=== PATIENT | male | born 1935 | race Caucasian/White ===

== ENCOUNTER 2019-11-23 08:47 | Outpatient (CLI) | payer OTHER, SELFPAY ==
[2019-11-23 09:14] LABS: Alanine Aminotransferase 24 U/L (4-50); Albumin Level 4.4 g/dL (3.5-5.1); Alkaline Phosphatase 94 U/L (38-126); Aspartate Amino Transferase 52 U/L (17-59); Bilirubin,Total 0.6 mg/dL (0.2-1.3); Blood Urea Nitrogen 16 mg/dL (9-20); Calcium 9.4 mg/dL (8.4-10.2); Carbon Dioxide 30 mmol/L (22-30); Chloride 105 mmol/L (98-107); Cholesterol 172 mg/dL (0-200); Estimated Glomerular Filt Rate > 60; Glucose 99 mg/dL (75-110); HDL Direct 74 mg/dL; Potassium 4.6 mmol/L (3.4-5.0); Sodium 138 mmol/L (137-145); Triglycerides 60 mg/dL (<150)
[2019-11-23 09:25] LABS: LDL Cholesterol Direct 75 mg/dL
== END 2019-11-23 08:48 | disposition home or self-care (01) ==
PROVIDERS: PCP Internal Medicine; Visit Provider Nurse Practitioner
DX: E78.5 Hyperlipidemia, unspecified (principal)
CPT/HCPCS: 36415; 80053; 80061

== ENCOUNTER 2020-08-07 11:23 | Outpatient (CLI) | payer OTHER, SELFPAY ==
[2020-08-07 12:02] LABS: Alanine Aminotransferase 27 U/L (4-50); Albumin Level 4.2 g/dL (3.5-5.1); Alkaline Phosphatase 85 U/L (38-126); Anion Gap 3 mmol/L (8-16); Aspartate Amino Transferase 51 U/L (17-59); Bilirubin,Total 0.4 mg/dL (0.2-1.3); Blood Urea Nitrogen 19 mg/dL (9-20); Calcium 9.4 mg/dL (8.4-10.2); Carbon Dioxide 31 mmol/L (22-30); Chloride 106 mmol/L (98-107); Cholesterol 176 mg/dL (0-200); Estimated Glomerular Filt Rate > 60; Glucose 94 mg/dL (75-110); HDL Direct 69 mg/dL; Potassium 4.7 mmol/L (3.4-5.0); Sodium 140 mmol/L (137-145); Triglycerides 110 mg/dL (<150)
[2020-08-07 12:12] LABS: LDL Cholesterol Direct 69 mg/dL
== END 2020-08-07 11:24 | disposition home or self-care (01) ==
PROVIDERS: PCP Internal Medicine; Visit Provider Internal Medicine
DX: I10 Essential (primary) hypertension (principal); Z79.899 Other long term (current) drug therapy; E78.5 Hyperlipidemia, unspecified
CPT/HCPCS: 36415; 80053; 80061

== ENCOUNTER 2021-03-11 14:07 | Outpatient (CLI) | payer OTHER, SELFPAY ==
[2021-03-11 15:16] LABS: Alanine Aminotransferase 28 U/L (4-50); Alkaline Phosphatase 109 U/L (38-126); Anion Gap 7 mmol/L (8-16); Aspartate Amino Transferase 60 U/L (17-59); Bilirubin,Total 0.6 mg/dL (0.2-1.3); Blood Urea Nitrogen 17 mg/dL (9-20); Calcium 9.7 mg/dL (8.4-10.2); Carbon Dioxide 28 mmol/L (22-30); Chloride 104 mmol/L (98-107); Cholesterol 234 mg/dL (0-200); Estimated Glomerular Filt Rate > 60; Glucose 96 mg/dL (65-110); HDL Direct 91 mg/dL; Potassium 4.3 mmol/L (3.4-5.0); Sodium 139 mmol/L (137-145); Triglycerides 85 mg/dL (<150)
[2021-03-11 15:26] LABS: LDL Cholesterol Direct 117 mg/dL
== END 2021-03-11 14:08 | disposition home or self-care (01) ==
PROVIDERS: PCP Internal Medicine; Visit Provider Internal Medicine
DX: Z79.899 Other long term (current) drug therapy (principal); I10 Essential (primary) hypertension; E78.5 Hyperlipidemia, unspecified
CPT/HCPCS: 36415; 80053; 80061

== ENCOUNTER 2021-04-03 00:59 | Day surgery (SDC) | payer OTHER, SELFPAY ==
[2021-03-22 13:00] VITALS: BMI 22.1
--- NOTE | 2021-04-02 09:34 | P.PNAN_ITS ---
Anes - Initial Pre Proc Eval Procedure: Operation Date: 04/03/21 11:00 Proposed Procedures p Colonoscopy - Mohsen Barber MD Date/Time: 04/02/21 09:34 Surgeon: Mohsen Barber MD Pre Op Diagnosis: Rectal Bleeding Patient Data Age: 85 Gender: M Height: 1.8 m Weight: 72 kg Allergies Allergy/AdvReac Type Severity Reaction Status Date / Time No Known Allergies Allergy Unknown Verified 04/03/21 10:19 Home Medications Medication Instructions Recorded Confirmed Type aspirin 81 mg tablet,delayed 81 mg PO DAILY 05/24/19 03/22/21 History release losartan 50 mg tablet 50 mg PO DAILY #90 tablet 02/04/21 03/22/21 Rx atorvastatin 10 mg tablet 10 mg PO DAILY #90 tablet 03/13/21 03/22/21 Rx Patient hx anesthesia problems: none Family hx anesthesia problems: none Results Review: All pre-operative results and documents have been reviewed as part of the pre-operative evaluation. [facility] Past Medical History Medical History (Updated 04/02/21 @ 09:35 by James Hudson DO) Bladder infection Elevated blood pressure reading in office without diagnosis of hypertension Essential hypertension Essential tremor Hyperlipidemia Mild cognitive impairment Rotator cuff tear Surgical History Surgical History S/P rotator cuff repair Family History Family History Father Cerebrovascular accident Patient's father is Sibling Cerebrovascular accident Family history of Parkinson's disease Patient's sister is Patient's brother is Mother Patient's mother is Social History Social History Smoking status: Never smoker Second hand tobacco smoke exposure: No Alcohol intake: current Drinks per week: 2 Substance use: never Substance use type: does not use Living arrangements: with family Spiritual care concerns: No Anes - Eval Final PreProcedure Day of Procedure 04/02/21 09:34 Patient weight: normal Heart: regular rate and rhythm Lungs: clear to auscultation and normal air movement Airway: Mallampati scale class II Neurological: alert and oriented Last oral intake: >/= 8 hours ASA classification: III Emergent: no Anesthetic plan: proceed Anesthesia type and monitoring: general GIVS and standard monitoring Results Review: All pre-operative results and documents have been reviewed as part of the pre-operative evaluation. Informed Consent: The patient's anesthetic plan and its attendant risks and benefits were discussed with the patient/family/POA. Questions were solicited and answers provided to the satisfaction of the patient/family/POA.
--- NOTE | 2021-04-02 13:37 | PM.HPGS ---
History of Present Illness History of Present Illness Consent: Risks, benefits, and alternatives have been discussed and questions answered. Patient agrees to proceed with procedure. Chief complaint: Rectal Bleeding Narrative: Sumit Lane is a 85 year old male who has been seeing blood in his stools for the past few months. His last colonoscopy was 7 years ago Review of Systems Review of Systems: All systems reviewed & are unremarkable except as noted in HPI and below PMFSH Past Medical History Medical History (Updated 04/02/21 @ 09:35 by James Hudson DO) Bladder infection Elevated blood pressure reading in office without diagnosis of hypertension Essential hypertension Essential tremor Hyperlipidemia Mild cognitive impairment Rotator cuff tear Surgical History Surgical History S/P rotator cuff repair Family History Family History Father Cerebrovascular accident Patient's father is Sibling Cerebrovascular accident Family history of Parkinson's disease Patient's sister is Patient's brother is Mother Patient's mother is Social History Social History Smoking status: Never smoker Second hand tobacco smoke exposure: No Alcohol intake: current Drinks per week: 2 Substance use: never Substance use type: does not use Living arrangements: with family Spiritual care concerns: No Meds Home Medications and Allergies Home Medications Medication Instructions Recorded Confirmed Type aspirin 81 mg tablet,delayed 81 mg PO DAILY 05/24/19 03/22/21 History release losartan 50 mg tablet 50 mg PO DAILY #90 tablet 02/04/21 03/22/21 Rx atorvastatin 10 mg tablet 10 mg PO DAILY #90 tablet 03/13/21 03/22/21 Rx Allergies Allergy/AdvReac Type Severity Reaction Status Date / Time No Known Allergies Allergy Unknown Verified 03/13/21 10:07 Exam Const: General: alert Orientation/consciousness: patient oriented x3 Resp: Auscultation: clear to auscultation bilaterally Cardio: Rhythm: regular rhythm GI: GI Palp: Yes Soft to palpation and No Tenderness to palpation present (GI) Neuro: General: patient oriented x3 Assessment and Plan Assessment and plan (1) Rectal bleeding: Code(s): K62.5 - Hemorrhage of anus and rectum Status: Acute Assessment and Plan: Colonoscopy with possible biopsy or polypectomy or cautery or injection of substances.
[2021-04-03 10:21] VITALS: BP 125/76; PULSE 69; RESP 20; TEMP 36.3; O2SAT 100; BMI 21.2
[2021-04-03] MEDS: LACTATED RINGERS 1,000 ML 150 ML IV CONT (10:25)
[2021-04-03 11:13] VITALS: BP 96/56; PULSE 52; RESP 12; O2SAT 99
[2021-04-03 11:23] VITALS: BP 111/58; PULSE 59; RESP 20; O2SAT 99
[2021-04-03 11:33] VITALS: BP 131/67; PULSE 50; RESP 15; O2SAT 100
== END 2021-04-03 11:53 | disposition home or self-care (01) ==
PROVIDERS: PCP Internal Medicine; Visit Provider Internal Medicine Gastroenterology
PROC: 0DJD8ZZ Inspection of Lower Intestinal Tract, Via Natural or Artificial Opening Endoscopic (ICD-10-PCS; CPT 45378; principal; 2021-04-03 11:00)
DX: Z12.11 Encounter for screening for malignant neoplasm of colon (principal); C20 Malignant neoplasm of rectum; K57.30 Diverticulosis of large intestine without perforation or abscess without bleeding; I10 Essential (primary) hypertension; R25.1 Tremor, unspecified; G31.84 Mild cognitive impairment of uncertain or unknown etiology; E78.5 Hyperlipidemia, unspecified; R03.0 Elevated blood-pressure reading, without diagnosis of hypertension; Z79.82 Long term (current) use of aspirin; K62.5 Hemorrhage of anus and rectum
CPT/HCPCS: 45380; 88305; J2704; J7120

== ENCOUNTER 2021-07-12 20:42 | Observation (INO) | payer OTHER, SELFPAY ==
--- NOTE | ~2021-07-12 | XR_ITS ---
EXAMINATION: XR chest 2V EXAM DATE: 07/12/2021 22:46 INDICATION: fever,generalized weakness,diarrheax3 days HXHTN/coloncancer TECHNIQUE: Frontal and lateral projections of the chest obtained and reviewed. There is no prior adan dy for comparison. FINDINGS: There is a right-sided portacatheter. Some hyperinflation. The lungs are clear. There are no pleural effusions. The cardiomediastinal silhouette is within normal limits. There is no pneumo thorax suspected. Moderate bilateral shoulder osteoarthritis. IMPRESSION: No acute cardiopulmonary findings. Reviewed, dictated and finalized at location G. MANAGER
--- NOTE | ~2021-07-12 | CT_ITS ---
EXAMINATION: CT abdomen pelvis w con EXAM DATE: 07/12/2021 22:35 INDICATION: Fever and abdominal pain . Colon cancer. TECHNIQUE: Spiral CT of the abdomen and pelvis was performed following intravenous injection of 100 m L Omnipaque 350. Axial, coronal and sagittal images of the abdomen and pelvis were reviewed. The do se-length product (DLP) for this examination was 436.61 mGy-cm. The exposure was tailored according to patient size (auto mA exposure control), and iterative reconstruction (ASIR) was used as additiona l dose reduction technique. Comparison is made to prior examination from 08/10/2018. FINDINGS: Study is limited due to patient motion. The liver, spleen, adrenal glands and pancreas ar e unremarkable. The gallbladder is distended but otherwise unremarkable, no calcified cholelithiasis . There is no biliary duct dilation. Portal and splenic veins are patent. Kidneys enhance symmetri bindu. There is no hydronephrosis. There are prostate radiation seeds. The bladder is unremarkabl e. There is no retroperitoneal or pelvic lymphadenopathy. There is mild to moderate scattered demetria riosclerotic disease. The appendix is not positively visualized. There is no pericecal inflammatory change to suggest appe ndicitis. The stomach and small bowel are unremarkable. There is colonic fluid, correlate for diar lance. No free intraperitoneal gas. The heart is normal in size. There are no pericardial or pleu ral effusions. The lung bases are unremarkable. There are no osteoblastic or osteolytic lesions seng ntified. IMPRESSION: 1. Distended but otherwise unremarkable gallbladder 2. Colonic fluid without wall thickening. Reviewed, dictated and finalized at location G. AND DIE MANAGER
[2021-07-12 20:43] VITALS: BP 138/70; PULSE 103; RESP 32; TEMP 39.2; O2SAT 100
--- NOTE | 2021-07-12 20:56 | ED.GENADULT ---
HPI - General Adult General Chief complaint: Nausea/Vomiting/Diarrhea Stated complaint: DIARRHEA, WEAKNESS, CHEMO Source: patient, EMS, RN notes reviewed and old records reviewed Mode of arrival: EMS Limitations: altered mental status History of Present Illness HPI narrative: 85-year-old male undergoing treatment for prostate and rectal cancer presented to the emergency department for evaluation of increased diarrhea, fever and altered mental status. 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 Patient reports he has had increased diarrhea over the last few days. Patient is confused upon arrival to the emergency department. Some history was obtained from the . Related Data Home Medications Medication Instructions Recorded Confirmed capecitabine 2,000 mg PO BID 07/13/21 07/13/21 likpklaxhyfk-dos-veui-FA-vit K 1 tablet PO DAILY 07/13/21 07/13/21 [Adults Multivitamin] Allergies Allergy/AdvReac Type Severity Reaction Status Date / Time No Known Allergies Allergy Unknown Verified 04/03/21 10:19 Review of Systems Review of Systems: ROS unobtainable: Yes unobtainable due to mental status PMFSH Past Medical History Medical History (Updated 07/13/21 @ 01:09 by Dereck Deleon MD) Bladder infection Elevated blood pressure reading in office without diagnosis of hypertension Essential hypertension Essential tremor Hyperlipidemia Mild cognitive impairment Rotator cuff tear Surgical History Surgical History S/P rotator cuff repair Family History Family History Father Cerebrovascular accident Patient's father is Sibling Cerebrovascular accident Family history of Parkinson's disease Patient's sister is Patient's brother is Mother Patient's mother is Social History Social History Smoking status: Never smoker Second hand tobacco smoke exposure: No Alcohol intake: never Drinks per week: 2 Substance use: never Substance use type: does not use Spiritual care concerns: No Exam Narrative: APPEARANCE: Ill-appearing HEAD: normocephalic, atraumatic. EYES: PERRLA/EOMI, conjunctivae clear. NOSE: Normal no drainage NECK: Supple. No adenopathy, no masses. RESPIRATORY: Airway patent, respirations nonlabored. Clear to auscultation bilaterally, no rales, rhonchi, wheezing. CARDIOVASCULAR: Regular rate and rhythm without murmurs rubs or gallops. ABDOMINAL: Soft, nontender, nondistended, normal bowel sounds MUSCULOSKELETAL: Moves all extremities. Strength/ROM intact, No edema, No calf tenderness. NEURO: Confused but no focal deficit SKIN: Warm, dry. Normal Color Course Course Emergency Course: Patient's fever did improve with treatment. Patient's labs showed no specific etiology for the patient's symptoms. Chest x-ray and abdominal CT were negative. Due to his diarrhea, significant fever and negative influenza and COVID patient was started on Zosyn for a possible underlying bacterial infection. Patient and were updated on the plan for treatment and admission. All questions and concerns were addressed. Discussed case with the hospitalist and patient was accepted for admission. Patient was stable at time of admission. Vital Signs Vital signs: Vital Signs Temperature 102.5 F H 07/12/21 20:43 Pulse Rate 103 H 07/12/21 20:43 Respiratory Rate 32 H 07/12/21 20:43 Blood Pressure 138/70 07/12/21 20:43 Pulse Oximetry 100 07/12/21 20:43 Temperature 98.2 F 07/13/21 06:00 Pulse Rate 78 07/13/21 06:00 Respiratory Rate 18 07/13/21 06:00 Blood Pressure 157/68 H 07/13/21 06:00 Pulse Oximetry 99 07/13/21 06:00 Medical Decision Making Medical Records Medical records reviewed: Yes I reviewed the ext
[2021-07-12] MEDS: SODIUM CHLORIDE 0.9% IV 500 ML 999 ML IV CONT (21:05)
[2021-07-12 21:19] LABS: Hematocrit 40.1 % (42.0-52.0); Hemoglobin 13.4 g/dL (14.0-18.0); Mean Corpuscular HGB Conc 33.4 g/dl (32-36); Mean Corpuscular Hemoglobin 30.2 pg (26-34); Mean Corpuscular Volume 90.3 fl (80-100); Mean Platelet Volume 8.6 fl (7.4-10.4); Platelet Count Result 268 k/mm3 (150-375); Red Blood Count 4.44 M/mm3 (4.6-6.20); Red Cell Distribution Width 12.4 % (11.5-14.5); White Blood Count 5.1 K/mm3 (4.5-10.0)
[2021-07-12 21:30] VITALS: TEMP 37
[2021-07-12 21:36] LABS: Alanine Aminotransferase 28 U/L (4-50); Albumin Level 3.9 g/dL (3.5-5.1); Alkaline Phosphatase 78 U/L (38-126); Anion Gap 11 mmol/L (8-16); Aspartate Amino Transferase 39 U/L (17-59); Bilirubin,Total 0.7 mg/dL (0.2-1.3); Blood Urea Nitrogen 24 mg/dL (9-20); Calcium 9.2 mg/dL (8.4-10.2); Carbon Dioxide 20 mmol/L (22-30); Chloride 103 mmol/L (98-107); Estimated CRCL calculation 48 ml/min; Estimated Glomerular Filt Rate > 60; Glucose 169 mg/dL (65-110); Lipase 42 U/L (23-300); Potassium 3.3 mmol/L (3.4-5.0); Sodium 134 mmol/L (137-145)
[2021-07-12 21:46] LABS: Band Neutrophils Percent 7 % (0-6); Lymphocytes Absolute Manual 1.83 K/mm3 (1.1-4.5); Lymphocytes Percent Manual 36 % (18-44); Monocytes Absolute Manual 0.96 K/mm3 (0.1-0.90); Monocytes Percent Manual 19 % (3-9); Neutrophils Absolute Manual 2.24 K/mm3 (1.3-6.7); Neutrophils Percent Manual 37 % (46-73); Total Cells Counted 100
[2021-07-12 21:47] LABS: Eosinophils Absolute Manual 0.05 K/mm3 (0.02-0.5); Eosinophils Percent Manual 1 % (0-4); Ovalocytes 1+ (NORMAL); Platelet Estimate Adequate (Adequate)
[2021-07-12 21:52] VITALS: PULSE 97; RESP 30; O2SAT 100
[2021-07-12 22:02] VITALS: TEMP 37.2
[2021-07-12 22:10] VITALS: BP 137/60; PULSE 92; RESP 28; O2SAT 100
[2021-07-12 22:11] LABS: Influenza A QL RT-PCR Negative (Negative); Influenza B QL RT-PCR Negative (Negative); SARS-CoV-2 RNA PCR Negative
[2021-07-12] MEDS: SODIUM CHLORIDE 0.9% IV 1,000 ML 250 ML IV CONT (22:11)
--- NOTE | 2021-07-12 22:25 | PC.NURSE ---
Pt to imaging at this time.
--- NOTE | 2021-07-12 23:20 | PC.NURSE ---
Pt moved to room 12, report given to [place] CIFUENTES
[2021-07-13 00:15] LABS: Reflex Lactic Acid Yes or No Add Lactic
--- NOTE | 2021-07-13 00:19 | PC.NURSE ---
This RN attempted straight catheter x2, unsuccessful. Pt able to stand at bedside with 2 assist and urinate for urine sample. 30 cc output.
[2021-07-13 00:41] LABS: Add Urine Microscopic? YES; Appearance Urine Clear (Clear); Bilirubin Urine Negative (Negative); Blood Urine 2+ (Negative); Color Urine Yellow (Yellow); Glucose Urine UA Negative (Negative); Ketones Urine 1+ mg/dL (Negative); Leukocyte Esterase Ur Negative LEU/UL (Negative); Mucus Urine Rare /lpf; Nitrate Urine Negative (Negative); Protein Urine Negative (Negative); Squamous Epithelial Cell Urine Rare /hpf (Few); Urobilinogen Urine Negative mg/dL (<2.0)
[2021-07-13 00:44] LABS: Specific Grav Ur 1.025 (1.001-1.035)
[2021-07-13 00:54] VITALS: BP 107/86; PULSE 77; RESP 16; TEMP 36.7; O2SAT 97
[2021-07-13 01:04] LABS: Lactic Acid 4.8 mmol/L (0.7-2.1)
[2021-07-13 01:53] VITALS: BP 158/62; PULSE 70; RESP 16; TEMP 36.7; O2SAT 98
--- NOTE | 2021-07-13 02:17 | ADMGEN ---
This patient, Sumit Lane, was admitted to [facility] Surg Room 333-01 at 0215. Patient/family oriented to hospital policies and general routines including ID bracelet, bed and alarms, visiting hours, pain management, procedures, bathroom and other care routines, personal items, smoking policy, room service/diet, and visiting hours. Information on how to activate the Rapid Response Team has been discussed. Patient/Family are encouraged to report perceived risks to care and to ask questions if they do not understand what they are told or what they should do.
[2021-07-13 02:22] VITALS: BP 148/57; PULSE 78; RESP 18; TEMP 37.2; O2SAT 100
[2021-07-13] MEDS: SODIUM CHLORIDE 0.9% IV 1,000 ML 125 ML IV CONT ×3 (02:53→21:31)
[2021-07-13 06:00] VITALS: BP 157/68; PULSE 78; RESP 18; TEMP 36.8; O2SAT 99
[2021-07-13] MEDS: MULTIVITAMINS /C LUTEIN (CENTRUM SILVER) TABLET *BKC 1 TAB PO (10:15)
[2021-07-13] MEDS: ATORVASTATIN 10 MG TABLET PO (10:15)
[2021-07-13 10:26] LABS: Hematocrit 36.6 % (42.0-52.0); Hemoglobin 12.4 g/dL (14.0-18.0); Mean Corpuscular HGB Conc 33.9 g/dl (32-36); Mean Corpuscular Hemoglobin 30.6 pg (26-34); Mean Corpuscular Volume 90.4 fl (80-100); Mean Platelet Volume 8.7 fl (7.4-10.4); Platelet Count Result 230 k/mm3 (150-375); Red Blood Count 4.05 M/mm3 (4.6-6.20); Red Cell Distribution Width 12.8 % (11.5-14.5); White Blood Count 4.8 K/mm3 (4.5-10.0)
[2021-07-13 10:37] LABS: Anion Gap 5 mmol/L (8-16); Blood Urea Nitrogen 25 mg/dL (9-20); Calcium 8.3 mg/dL (8.4-10.2); Carbon Dioxide 23 mmol/L (22-30); Chloride 108 mmol/L (98-107); Estimated CRCL calculation 50 ml/min; Estimated Glomerular Filt Rate > 60; Glucose 125 mg/dL (65-110); Magnesium 1.9 mg/dL (1.6-2.3); Potassium 3.3 mmol/L (3.4-5.0); Sodium 136 mmol/L (137-145)
--- NOTE | 2021-07-13 13:30 | PM.IMHP ---
H&P: HPI History of Present Illness Date/Time: 07/13/21 13:30 ED-HPI narrative: 85-year-old male undergoing treatment for prostate and rectal cancer presented to the emergency department for evaluation of increased diarrhea, fever and altered mental status. 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 Patient reports he has had increased diarrhea over the last few days. Patient is confused upon arrival to the emergency department. Some history was obtained from the . 07/13/2021 Interval history: patient is 85-year-old male with history of prostate cancer status post chemotherapy and radiation now has rectal adenocarcinoma and currently going through chemotherapy presented emergency depart with fever most likely secondary to chemotherapy, persistent diarrhea nausea and vomiting unable to hold p.o., patient is elderly frail appears to be in pain, discussed with the patient considering hospice I also spoke with the patient's and she is also in agreement to discuss with hospice further recommendation, will continue clear liquids, Imodium as needed and hydrate the patient, will continue to monitor and further recommendation to follow. patient admitted as inpatient most likely will stay 2 midnights Chief Complaint: fever nausea or vomiting diarrhea Review of Systems Review of Systems: All systems reviewed & are unremarkable except as noted in HPI and below PMFSH Past Medical History Medical History (Updated 07/13/21 @ 01:09 by Dereck Deleon MD) Bladder infection Elevated blood pressure reading in office without diagnosis of hypertension Essential hypertension Essential tremor Hyperlipidemia Mild cognitive impairment Rotator cuff tear Surgical History Surgical History S/P rotator cuff repair Family History Family History Father Cerebrovascular accident Patient's father is Sibling Cerebrovascular accident Family history of Parkinson's disease Patient's sister is Patient's brother is Mother Patient's mother is Social History Social History Smoking status: Never smoker Second hand tobacco smoke exposure: No Alcohol intake: never Drinks per week: 2 Substance use: never Substance use type: does not use Spiritual care concerns: No Meds Home Medications and Allergies Home Medications Medication Instructions Recorded Confirmed Type losartan 50 mg tablet 50 mg PO DAILY #90 tablet 02/04/21 07/13/21 Rx atorvastatin 10 mg tablet 10 mg PO DAILY #90 tablet 03/13/21 07/13/21 Rx capecitabine 2,000 mg PO BID 07/13/21 07/13/21 History xcojurpnzesh-eoe-pnbd-FA-vit K 1 tablet PO DAILY 07/13/21 07/13/21 History [Adults Multivitamin] Allergies Allergy/AdvReac Type Severity Reaction Status Date / Time No Known Allergies Allergy Unknown Verified 04/03/21 10:19 Vital Signs Vital Signs - 24 hr 07/12/21 20:43 07/12/21 21:30 07/12/21 21:52 Temperature 102.5 F H 98.6 F Pulse Rate 103 H 97 Respiratory Rate 32 H 30 H Blood Pressure 138/70 Pulse Oximetry 100 100 07/12/21 22:02 07/12/21 22:10 07/13/21 00:54 Temperature 98.9 F 98.0 F Pulse Rate 92 77 Respiratory Rate 28 H 16 Blood Pressure 137/60 107/86 Pulse Oximetry 100 97 07/13/21 01:53 07/13/21 02:22 07/13/21 06:00 Temperature 98.1 F 99.0 F 98.2 F Pulse Rate 70 78 78 Respiratory Rate 16 18 18 Blood Pressure 158/62 H 148/57 H 157/68 H Pulse Oximetry 98 100 99 Exam Narrative: elderly frail Patient is comfortable, NAD HEENT: eyes are clear and none icteric LUNGS:CTA HEART: RR S1S2 ABD: BS+, Soft and diffusely tender Lower extremities: no edema SKIN: nonjaundiced Neuro: grossly intact. H&P: Results Labs Labs: Short CBC 0
[2021-07-13 14:00] VITALS: BP 136/61; PULSE 65; RESP 16; TEMP 36.7; O2SAT 100
[2021-07-13 21:55] VITALS: BP 153/83; PULSE 78; RESP 18; TEMP 36.8; O2SAT 100
[2021-07-14 01:12] VITALS: O2SAT 95
[2021-07-14] MEDS: SODIUM CHLORIDE 0.9% IV 1,000 ML 125 ML IV CONT ×3 (05:33→22:19)
[2021-07-14 05:51] VITALS: BP 148/88; PULSE 77; RESP 18; TEMP 36.7; O2SAT 100
[2021-07-14 06:28] LABS: Hematocrit 36.2 % (42.0-52.0); Hemoglobin 12.2 g/dL (14.0-18.0); Mean Corpuscular HGB Conc 33.7 g/dl (32-36); Mean Corpuscular Hemoglobin 30.5 pg (26-34); Mean Corpuscular Volume 90.5 fl (80-100); Mean Platelet Volume 8.9 fl (7.4-10.4); Platelet Count Result 276 k/mm3 (150-375); Red Cell Distribution Width 12.9 % (11.5-14.5); White Blood Count 4.1 K/mm3 (4.5-10.0)
[2021-07-14 06:46] LABS: Anion Gap 6 mmol/L (8-16); Blood Urea Nitrogen 24 mg/dL (9-20); Calcium 8.4 mg/dL (8.4-10.2); Carbon Dioxide 22 mmol/L (22-30); Chloride 109 mmol/L (98-107); Estimated CRCL calculation 64 ml/min; Estimated Glomerular Filt Rate > 60; Glucose 114 mg/dL (65-110); Potassium 3.2 mmol/L (3.4-5.0); Sodium 137 mmol/L (137-145)
[2021-07-14] MEDS: MULTIVITAMINS /C LUTEIN (CENTRUM SILVER) TABLET *BKC 1 TAB PO (08:30)
[2021-07-14] MEDS: ATORVASTATIN 10 MG TABLET PO (08:30)
[2021-07-14] MEDS: POTASSIUM CHLORIDE 20 MEQ PACKET (FOR LIQUID) 40 MEQ PO (10:02)
--- NOTE | 2021-07-14 11:00 | PM.IMPN ---
Progress Note: A&P Assessment and Plan (1) Fever: Qualifiers: Fever type: unspecified Qualified Code(s): R50.9 - Fever, unspecified Code(s): R50.9 - Fever, unspecified Status: Acute Assessment and Plan: 07/13/2021 Interval history: patient is 85-year-old male with history of prostate cancer status post chemotherapy and radiation now has rectal adenocarcinoma and currently going through chemotherapy presented emergency depart with fever most likely secondary to chemotherapy, persistent diarrhea nausea and vomiting unable to hold p.o., patient is elderly frail appears to be in pain, discussed with the patient considering hospice I also spoke with the patient's and she is also in agreement to discuss with hospice further recommendation, will continue clear liquids, Imodium as needed and hydrate the patient, will continue to monitor and further recommendation to follow. 07/14/2021 Interval history: today patient remains clinically stable is feeling better seems diarrhea and to control, I spoke with the patient's yesterday see will discuss with his oncologist for prognosis and planning, may consider hospice care, will continue to monitor (2) Diarrhea: Qualifiers: Diarrhea type: unspecified type Qualified Code(s): R19.7 - Diarrhea, unspecified Code(s): R19.7 - Diarrhea, unspecified Status: Acute Assessment and Plan: most likely secondary to chemotherapy, will give Imodium as needed, hydrate the patient and monitor electrolytes. (3) Rectal cancer: Code(s): C20 - Malignant neoplasm of rectum Status: Acute Assessment and Plan: patient with rectal adenocarcinoma patient is going through chemotherapy Subjective Date/time seen: 07/14/21 11:00 07/13/2021 Interval history: patient is 85-year-old male with history of prostate cancer status post chemotherapy and radiation now has rectal adenocarcinoma and currently going through chemotherapy presented emergency depart with fever most likely secondary to chemotherapy, persistent diarrhea nausea and vomiting unable to hold p.o., patient is elderly frail appears to be in pain, discussed with the patient considering hospice I also spoke with the patient's and she is also in agreement to discuss with hospice further recommendation, will continue clear liquids, Imodium as needed and hydrate the patient, will continue to monitor and further recommendation to follow. 07/14/2021 Interval history: today patient remains clinically stable is feeling better seems diarrhea and to control, I spoke with the patient's yesterday see will discuss with his oncologist for prognosis and planning, may consider hospice care, will continue to monitor Review of Systems Review of Systems: All systems reviewed & are unremarkable except as noted in HPI and below Exam Narrative: elderly frail Patient is comfortable, NAD HEENT: eyes are clear and none icteric LUNGS:CTA HEART: RR S1S2 ABD: BS+, Soft and diffusely tender Lower extremities: no edema SKIN: nonjaundiced Neuro: grossly intact. Objective Data Vital Signs Vital Signs: Vital Signs - 24 hr 07/13/21 14:00 07/13/21 21:55 07/14/21 01:12 Temperature 98.0 F 98.3 F Pulse Rate 65 78 Respiratory Rate 16 18 Blood Pressure 136/61 153/83 H Pulse Oximetry 100 100 95 07/14/21 05:51 Temperature 98.0 F Pulse Rate 77 Respiratory Rate 18 Blood Pressure 148/88 H Pulse Oximetry 100 Intake/Output Intake/Output: Intake & Output 07/11/21 07/12/21 07/13/21 07/14/21 23:59 23:59 23:59 23:59 Intake Total 600 4460 2060 Output Total 875 100 Balance 600 3585 1960 Meds/Results Medications: Active Medications Generic Name Dose Route Start Last Admin Trade Name Freq PRN Reason Stop Dose Admin Atorvastatin Calcium 10 mg 07/13/21 09:00 07/14/21 08:30 Atorvastatin 10 Mg Tablet PO 10 mg DAILY DUANE Administration Sodium Chloride
[2021-07-14 14:00] VITALS: BP 161/79; PULSE 82; RESP 20; TEMP 36.1; O2SAT 100
[2021-07-14 20:36] VITALS: BP 170/72; PULSE 78; RESP 18; TEMP 36.6; O2SAT 99
[2021-07-15 03:54] VITALS: BP 148/77; PULSE 72; RESP 18; TEMP 36.6; O2SAT 99
[2021-07-15] MEDS: SODIUM CHLORIDE 0.9% IV 1,000 ML 125 ML IV CONT (05:53)
[2021-07-15 07:21] LABS: Hematocrit 36.4 % (42.0-52.0); Hemoglobin 11.5 g/dL (14.0-18.0); Mean Corpuscular HGB Conc 31.6 g/dl (32-36); Mean Corpuscular Hemoglobin 29.9 pg (26-34); Mean Corpuscular Volume 94.5 fl (80-100); Mean Platelet Volume 8.7 fl (7.4-10.4); Platelet Count Result 284 k/mm3 (150-375); Red Blood Count 3.85 M/mm3 (4.6-6.20); Red Cell Distribution Width 13.2 % (11.5-14.5); White Blood Count 4.2 K/mm3 (4.5-10.0)
[2021-07-15 07:32] LABS: Anion Gap 7 mmol/L (8-16); Blood Urea Nitrogen 22 mg/dL (9-20); Carbon Dioxide 19 mmol/L (22-30); Chloride 112 mmol/L (98-107); Estimated CRCL calculation 64 ml/min; Estimated Glomerular Filt Rate > 60; Glucose 105 mg/dL (65-110); Magnesium 2.2 mg/dL (1.6-2.3); Sodium 138 mmol/L (137-145)
[2021-07-15 08:00] VITALS: PULSE 72; RESP 18; O2SAT 99
[2021-07-15] MEDS: MULTIVITAMINS /C LUTEIN (CENTRUM SILVER) TABLET *BKC 1 TAB PO (09:28)
[2021-07-15] MEDS: ATORVASTATIN 10 MG TABLET PO (09:28)
[2021-07-15] MEDS: POTASSIUM CHLORIDE 20 MEQ PACKET (FOR LIQUID) 40 MEQ PO (09:28)
--- NOTE | 2021-07-15 09:28 | PM.DS ---
DS: Admitting Diagnosis Discharge Date 07/15/2021 Admitting Diagnosis fever nausea or vomiting diarrhea DS: Discharge Diagnosis Discharge Diagnosis (1) Fever: Qualifiers: Fever type: unspecified Qualified Code(s): R50.9 - Fever, unspecified Code(s): R50.9 - Fever, unspecified Status: Acute Assessment and Plan: 07/13/2021 Interval history: patient is 85-year-old male with history of prostate cancer status post chemotherapy and radiation now has rectal adenocarcinoma and currently going through chemotherapy presented emergency depart with fever most likely secondary to chemotherapy, persistent diarrhea nausea and vomiting unable to hold p.o., patient is elderly frail appears to be in pain, discussed with the patient considering hospice I also spoke with the patient's and she is also in agreement to discuss with hospice further recommendation, will continue clear liquids, Imodium as needed and hydrate the patient, will continue to monitor and further recommendation to follow. 07/14/2021 Interval history: today patient remains clinically stable is feeling better seems diarrhea and to control, I spoke with the patient's yesterday see will discuss with his oncologist for prognosis and planning, may consider hospice care, will continue to monitor (2) Diarrhea: Qualifiers: Diarrhea type: unspecified type Qualified Code(s): R19.7 - Diarrhea, unspecified Code(s): R19.7 - Diarrhea, unspecified Status: Acute Assessment and Plan: most likely secondary to chemotherapy, will give Imodium as needed, hydrate the patient and monitor electrolytes. (3) Rectal cancer: Code(s): C20 - Malignant neoplasm of rectum Status: Acute Assessment and Plan: patient with rectal adenocarcinoma patient is going through chemotherapy DS: Summary Hospital Course Reason for hospitalization: ED-HPI narrative: 85-year-old male undergoing treatment for prostate and rectal cancer presented to the emergency department for evaluation of increased diarrhea, fever and altered mental status. 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 Patient reports he has had increased diarrhea over the last few days. Patient is confused upon arrival to the emergency department. Some history was obtained from the . 07/13/2021 Interval history: patient is 85-year-old male with history of prostate cancer status post chemotherapy and radiation now has rectal adenocarcinoma and currently going through chemotherapy presented emergency depart with fever most likely secondary to chemotherapy, persistent diarrhea nausea and vomiting unable to hold p.o., patient is elderly frail appears to be in pain, discussed with the patient considering hospice I also spoke with the patient's and she is also in agreement to discuss with hospice further recommendation, will continue clear liquids, Imodium as needed and hydrate the patient, will continue to monitor and further recommendation to follow. patient admitted as inpatient most likely will stay 2 midnights Chief Complaint: fever nausea or vomiting diarrhea Hospital Course: 07/13/2021 Interval history: patient is 85-year-old male with history of prostate cancer status post chemotherapy and radiation now has rectal adenocarcinoma and currently going through chemotherapy presented emergency depart with fever most likely secondary to chemotherapy, persistent diarrhea nausea and vomiting unable to hold p.o., patient is elderly frail appears to be in pain, discussed with the patient considering hospice I also spoke with the patient's and she is also in agreement to discuss with hospice further recommendation, will continue clear liquids, Imodium as needed and hydrate the patient, will continue to monitor and further recommendation to follow. 07/14/2021 Interval history: today patient remains clinically stable is
--- NOTE | 2021-07-15 09:47 | PC.NURSE ---
called discharge instruction given to , informed zofran prescription for nausea sent to [facility] pharmacy in [place], [place].
== END 2021-07-15 10:45 | disposition home health service (06) ==
LOC: ANHED 07-13 01:09 → ANH3MEDSUR 07-13 02:16
PROVIDERS: Admitting Provider Internal Medicine; Emergency Provider Emergency Medicine; PCP Internal Medicine; Visit Provider Family Medicine
DX: R19.7 Diarrhea, unspecified (principal); C20 Malignant neoplasm of rectum; R50.9 Fever, unspecified; Z85.46 Personal history of malignant neoplasm of prostate; R41.82 Altered mental status, unspecified; Z92.21 Personal history of antineoplastic chemotherapy; Z20.822 Contact with and (suspected) exposure to COVID-19
CPT/HCPCS: 36415; 71046; 74177; 80048; 80053; 81001; 83605; 83690; 83735; 85025; 85027; 87040; 87502; 96361; 96365; 96367; 97161; 97165; 99285; A9270; C9803; G0378; J0131; J2543; J7030; J7040; Q9967; U0003; U0005